=== PATIENT | male | born 1940 ===

== ENCOUNTER → 2022-05-05 | Outpatient (REF) | payer SELFPAY ==
[2022-05-05 11:56] LABS: Color, Urine Amber (Yellow); Glucose, Dipstick Normal (Normal); Ketone-Dipstick 5 mg/dl (Negative); Leukocyte Esterase-Dipstick 25 /ul (Negative); Nitrite-Dipstick Negative (Negative); Occult Blood-Urine 10 /ul (Negative); Protein-Dipstick 30 mg/dl (Negative); Specific Gravity, Urine 1.025 (1.002-1.030); Urine Clarity Clear (Clear); Urine Urobilinogen 4 mg/dl (Normal)
[2022-05-05 11:57] LABS: Urine Bilirubin Dipstick 1 mg/dL (Negative)
== END ==
LOC: LABSPEC 11:34
PROVIDERS: Visit Provider Family Medicine Hospice and Palliative Medicine
DX: I71.03 Dissection of thoracoabdominal aorta (principal); Z79.899 Other long term (current) drug therapy
CPT/HCPCS: 81002; 87086